=== PATIENT | male | born 1975 | race Caucasian/White ===

== ENCOUNTER 2018-06-12 16:54 | Inpatient (IN) | payer OTHER ==
[~2018-06-12] VITALS: Ht 177.8 cm; Wt 103.4 kg
[2018-06-12 17:01] VITALS: BP 181/114
[2018-06-12] MEDS ORDERED: METOPROLOL 5 MG/5 ML VIAL IVP ONE (17:15)
[2018-06-12 17:37] LABS: BASOPHILS % (AUTO) 0.4 % (0.0-2.0); EOSINOPHILS # (AUTO) 0.2 K/uL (0-0.4); EOSINOPHILS % (AUTO) 2.7 % (0.0-4.0); HEMATOCRIT 53.2 % (36-52); HEMOGLOBIN 18.2 g/dL (12.0-18.0); LYMPHOCYTES # (AUTO) 1.8 K/uL (2.0-11.5); LYMPHOCYTES % (AUTO) 24.7 % (20.5-51.1); MEAN CORPUSCULAR HEMOGLOBIN 30 pg (27-31); MEAN CORPUSCULAR HGB CONC 34 g/dL (33-37); MONOCYTES # (AUTO) 0.3 K/uL (0.8-1.0); MONOCYTES % (AUTO) 4.6 % (1.7-9.3); NEUTROPHILS % (AUTO) 67.6 % (42.2-75.2); PLATELET COUNT (AUTO) 144 K/uL (140-450); RED BLOOD CELL COUNT(AUTO) 5.98 MIL/uL (4.20-6.10); RED CELL DISTRIBUTION WIDTH 13.3 % (11.6-13.7); WHITE BLOOD COUNT (AUTO) 7.4 K/uL (4.8-10.8)
[2018-06-12 18:18] LABS: PROTHROMBIN TIME 9.6 secs (10.8-13.4)
[2018-06-12 18:20] LABS: ALBUMIN 3.1 g/dL (3.4-5.0); ANION GAP 15.1 (8-16); CARBON DIOXIDE 23.3 mmol/L (21-32); POTASSIUM 4.4 mmol/L (3.5-5.1); TOTAL BILIRUBIN 0.5 mg/dL (0.0-1.0)
[2018-06-12 18:34] LABS: CREATININE 4.1 mg/dL (0.7-1.3)
[2018-06-12] MEDS ORDERED: ONDANSETRON 4 MG/2 ML VIAL IVP ONE (20:35)
[2018-06-12] MEDS ORDERED: KETOROLAC 30 MG/ML VIAL IVP ONE (20:35)
[2018-06-12] MEDS ORDERED: hydrALAZINE 20 MG/ML VIAL IVP ONE (21:00)
[2018-06-12] MEDS ORDERED: LORazepam 2 MG/ML VIAL IVP PRN ×2 (21:35→21:40)
[2018-06-12] MEDS ORDERED: ONDANSETRON 4 MG/2 ML VIAL IVP PRN ×2 (21:35→21:40)
[2018-06-12] MEDS ORDERED: HYDROcodone/APAP 5/325 MG 1 TAB TAB PO PRN ×3 (21:35→21:40)
[2018-06-12] MEDS ORDERED: MORPHINE SULFATE 4 MG/ML SYR IVP PRN (21:35)
[2018-06-12] MEDS ORDERED: ACETAMINOPHEN 325 MG TAB PO PRN ×2 (21:35→21:40)
[2018-06-12] MEDS ORDERED: MORPHINE SULFATE 2 MG/ML SYR IVP PRN (21:40)
[2018-06-12] MEDS ORDERED: guaiFENesin DM 200/20 MG-10 ML 10 ML UDC PO PRN (21:40)
[2018-06-12] MEDS ORDERED: ACETAMINOPHEN 650 MG SUPP RC PRN (21:40)
[2018-06-12] MEDS ORDERED: DEXTROSE 50% 50 ML SYR IVP PRN (21:40)
[2018-06-12] MEDS ORDERED: ALBUTEROL 0.083% 2.5 MG/3 ML NEBU INH PRN (21:40)
[2018-06-12] MEDS ORDERED: ZOLPIDEM 5 MG TAB PO PRN (21:40)
[2018-06-12] MEDS ORDERED: ALUMINUM HYD/MAG/SIMETHICONE 30 ML UDC PO PRN (21:40)
[2018-06-12] MEDS ORDERED: cloNIDine 0.1 MG TAB PO PRN (21:40)
[2018-06-12] MEDS ORDERED: LABETALOL 100 MG/20 ML VIAL IVP PRN (21:40)
[2018-06-12] MEDS ORDERED: POTASSIUM CHLORIDE 10 MEQ TABER PO PRN (21:40)
[2018-06-12] MEDS ORDERED: POTASSIUM CHLORIDE 40 MEQ, LIDOCAINE 1% 25 MG in NACL 0.9% 250 ML IV PRN (21:40)
[2018-06-12] MEDS ORDERED: IPRATROPIUM 0.02% 0.5 MG/2.5 ML NEBU INH PRN (21:40)
[2018-06-12] MEDS ORDERED: DOCUSATE SODIUM 250 MG GELCAP PO PRN (21:40)
[2018-06-12] MEDS ORDERED: BISACODYL 10 MG SUPP RC PRN (21:40)
[2018-06-12] MEDS ORDERED: MAGNESIUM OXIDE 400 MG TAB PO PRN (21:40)
[2018-06-12] MEDS ORDERED: SODIUM PHOSPHATE 118 ML ENEM RC PRN (21:40)
[2018-06-12 22:00] VITALS: BP 168/102
[2018-06-12 22:25] VITALS: BP 150/91
[2018-06-12] MEDS: NACL 0.9% 1,000 ML IV SCH (22:54)
[2018-06-13] VITALS: BP 136/93
[2018-06-13 04:00] VITALS: BP 154/93
[2018-06-13] MEDS: BLOOD GLUCOSE MONITORING 1 DEV DEV FS SCH ×3 (05:47→17:12)
[2018-06-13] MEDS: NACL 0.9% 1,000 ML IV SCH (05:50)
[2018-06-13] MEDS: INSULIN LISPRO SLIDING SCALE 100 UNITS/ML VIAL SUBQ PRN ×3 (05:51→17:40)
[2018-06-13 06:07] LABS: BASOPHILS % (AUTO) 0.4 % (0.0-2.0); EOSINOPHILS # (AUTO) 0.3 K/uL (0-0.4); EOSINOPHILS % (AUTO) 4.5 % (0.0-4.0); HEMATOCRIT 49.3 % (36-52); HEMOGLOBIN 17.4 g/dL (12.0-18.0); LYMPHOCYTES # (AUTO) 2.6 K/uL (2.0-11.5); LYMPHOCYTES % (AUTO) 33.3 % (20.5-51.1); MEAN CORPUSCULAR HEMOGLOBIN 31 pg (27-31); MEAN CORPUSCULAR HGB CONC 35 g/dL (33-37); MEAN CORPUSCULAR VOLUME 88.6 fL (80-94); MONOCYTES # (AUTO) 0.5 K/uL (0.8-1.0); MONOCYTES % (AUTO) 6.3 % (1.7-9.3); NEUTROPHILS # (AUTO) 4.3 K/uL (1.8-7.7); NEUTROPHILS % (AUTO) 55.5 % (42.2-75.2); PLATELET COUNT (AUTO) 135 K/uL (140-450); RED BLOOD CELL COUNT(AUTO) 5.57 MIL/uL (4.20-6.10); RED CELL DISTRIBUTION WIDTH 13.1 % (11.6-13.7); WHITE BLOOD COUNT (AUTO) 7.7 K/uL (4.8-10.8)
[2018-06-13] MEDS ORDERED: PNEUMOCOCCAL VACCINE 23 MCG/0.5 ML VIAL IMVAC PRN (07:25)
[2018-06-13 08:00] VITALS: BP 172/100
[2018-06-13] MEDS ORDERED: ENOXAPARIN 30 MG/0.3 ML SYR SUBQ SCH (09:00)
[2018-06-13] MEDS ORDERED: NIFEdipine 30 MG TABER PO SCH (10:00)
[2018-06-13 12:00] VITALS: BP 149/95
[2018-06-13 16:02] VITALS: BP 138/92
[2018-06-13] MEDS ORDERED: INFLUENZA VIRUS VACCINE QUAD 0.5 ML SYR IMVAC SCH (16:45)
[2018-06-13] MEDS ORDERED: HUMSLIDE (17:04)
[2018-06-13] MEDS ORDERED: NIFE-144 PO ×2 (17:05→17:07)
[2018-06-13] MEDS ORDERED: HYDR100T79 PO (17:06)
[2018-06-13 17:24] LABS: ANION GAP 9.8 (8-16); CARBON DIOXIDE 24.7 mmol/L (21-32); CREATININE 3.9 mg/dL (0.7-1.3); POTASSIUM 4.5 mmol/L (3.5-5.1)
[2018-06-14] MEDS ORDERED: NIFEdipine 30 MG TABER PO SCH (09:00)
== END 2018-06-13 18:45 | disposition home or self-care (01) | DRG 199 ==
LOC: MED 16:54 → MTU 21:38
PROVIDERS: ADMIT Hospitalist; ATTEND Hospitalist
DX: I16.1 Hypertensive emergency (principal); E11.22 Type 2 diabetes mellitus with diabetic chronic kidney disease; N18.4 Chronic kidney disease, stage 4 (severe); N17.9 Acute kidney failure, unspecified; D75.1 Secondary polycythemia; E11.65 Type 2 diabetes mellitus with hyperglycemia; I16.0 Hypertensive urgency; I12.9 Hypertensive chronic kidney disease with stage 1 through stage 4 chronic kidney disease, or unspecified chronic kidney disease; N18.9 Chronic kidney disease, unspecified; Z79.84 Long term (current) use of oral hypoglycemic drugs
CPT/HCPCS: 36415; 71045; 76770; 80048; 80053; 82948; 83036; 83880; 84443; 84484; 85025; 85610; 85730; 87081; 90732; 93005; 96374; 96375; 99285; J0360; J1650; J1815; J1885; J2405; J3490; J7030; Q0092

== ENCOUNTER 2018-06-23 00:15 | Emergency (ER) | payer OTHER ==
[~2018-06-23] VITALS: Ht 177.8 cm; Wt 104.3 kg
[~2018-06-23 00:15] MED LIST: HUMSLIDE; HYDR100T79 PO; NIFE-144 PO
[2018-06-23 00:21] VITALS: BP 190/120
--- NOTE | 2018-06-23 00:21 | NUR ---
to bed # 5 ambulatory, report given to Melinda Lutz
--- NOTE | 2018-06-23 00:25 | NUR ---
43 Y/O M W/C/O VOMITING AND HEADACHE THAT STARTED TODAY IN THE AFTERNOON. PT DENIES ABD PAIN AND DIARRHEA. PT ACTIVELY VOMITING; SKIN IS INTACT, PINK/WARM/DRY; AAOX4, PERRL, WITH EVEN AND STEADY GAIT; LUNGS CLEAR BL, BREATHING UNLABORED; HR EVEN AND REGULAR, BL PERIPHERAL PULSES PRESENT; BS ACTIVE X4, NO TENDERNESS TO PALPATION, NO HEPATOSPLENOMEGALLY PALPATED, RESONANT TO PERCUSSION; PT DENIES ANY FEVER, CP, SOB, OR COUGH AT THIS TIME; PT STATES 8/10 PAIN AT THIS TIME; VSS; PATIENT POSITIONED FOR COMFORT; HOB ELEVATED; BEDRAILS UP X2; BED DOWN.
--- NOTE | 2018-06-23 01:15 | NUR ---
Dr. Wheeler evaluating patient at bedside.
[2018-06-23] MEDS ORDERED: NACL 0.9% 1,000 ML IV SCH (01:58)
[2018-06-23] MEDS ORDERED: diphenhydrAMINE 50 MG/ML VIAL IVP ONE (02:00)
[2018-06-23] MEDS ORDERED: METOCLOPRAMIDE 10 MG/2 ML INJ VIAL IVP ONE (02:00)
[2018-06-23] MEDS ORDERED: KETOROLAC 30 MG/ML VIAL IVP ONE (02:00)
[2018-06-23] MEDS ORDERED: MORPHINE SULFATE 2 MG/ML SYR IVP ONE (02:00)
[2018-06-23] MEDS ORDERED: ONDANSETRON 4 MG/2 ML VIAL IVP ONE (02:00)
--- NOTE | 2018-06-23 02:05 | NUR ---
PT LYING IN BED, PAIN IS 10/10. MD NOTIFIED
--- NOTE | 2018-06-23 02:48 | NUR ---
PT TAKEN TO CT
[2018-06-23 03:21] LABS: BASOPHILS % (AUTO) 0.1 % (0.0-2.0); EOSINOPHILS # (AUTO) 0.1 K/uL (0-0.4); EOSINOPHILS % (AUTO) 0.6 % (0.0-4.0); HEMATOCRIT 53.9 % (36-52); HEMOGLOBIN 18.6 g/dL (12.0-18.0); LYMPHOCYTES # (AUTO) 1.1 K/uL (2.0-11.5); MEAN CORPUSCULAR HEMOGLOBIN 31 pg (27-31); MEAN CORPUSCULAR HGB CONC 35 g/dL (33-37); MEAN CORPUSCULAR VOLUME 88.6 fL (80-94); MONOCYTES # (AUTO) 0.8 K/uL (0.8-1.0); MONOCYTES % (AUTO) 4.5 % (1.7-9.3); NEUTROPHILS # (AUTO) 15.4 K/uL (1.8-7.7); NEUTROPHILS % (AUTO) 88.3 % (42.2-75.2); PLATELET COUNT (AUTO) 145 K/uL (140-450); RED BLOOD CELL COUNT(AUTO) 6.09 MIL/uL (4.20-6.10); RED CELL DISTRIBUTION WIDTH 13.3 % (11.6-13.7)
[2018-06-23 03:25] LABS: BARBITURATE, URINE NEG. ng/ml (NEG <=200); BENZODIAZEPINE, URINE NEG. ng/mL (NEG <=200); CANNABINOID, URINE NEG. ng/mL (NEG <=50); COCAINE, URINE NEG. ng/mL (NEG <=300); OPIATE, URINE POS. ng/mL (NEG <=2000); PHENCYCLIDINE SCREEN,URINE NEG. ng/mL (NEG <=25)
[2018-06-23 03:31] LABS: ALBUMIN 3.2 g/dL (3.4-5.0); ANION GAP 5.6 (8-16); CARBON DIOXIDE 26.7 mmol/L (21-32); POTASSIUM 4.3 mmol/L (3.5-5.1); TOTAL BILIRUBIN 0.5 mg/dL (0.0-1.0)
[2018-06-23 03:33] LABS: APPEARANCE,URINE CLEAR (CLEAR); BILIRUBIN,URINE NEGATIVE (NEGATIVE); BLOOD, URINE 2+ (NEGATIVE); COLOR,URINE YELLOW (YELLOW); LEUKOCYTE ESTERASE ,URINE NEGATIVE (NEGATIVE); NITRITE, URINE NEGATIVE (NEGATIVE); UGLUCOSE 2+ (NEGATIVE)
[2018-06-23 03:45] LABS: WHITE BLOOD COUNT (AUTO) 17.5 K/uL (4.8-10.8)
[2018-06-23 03:46] LABS: LYMPHOCYTES % (AUTO) 6.5 % (20.5-51.1)
[2018-06-23 04:06] LABS: HYALINE CASTS, URINE 0-10 /LPF (None Seen); RBC,URINE 3-10 (FEW) /HPF (0-5); WBC,URINE 0-5 (RARE) /HPF (0-5)
--- NOTE | 2018-06-23 05:05 | NUR ---
Patient discharged with v/s stable. Written and verbal after care instructions given and explained. Patient alert, oriented and verbalized understanding of instructions. Ambulatory with steady gait. All questions addressed prior to discharge. ID band removed. Patient advised to follow up with PMD. Rx of REGLAN, MOTRIN, MECLIZINE, AND AUGMENTIN given. Patient educated on indication of medication including possible reaction and side effects. Opportunity to ask questions provided and answered.
[2018-06-23 05:10] VITALS: BP 158/91
== END 2018-06-23 05:05 | disposition home or self-care (01) ==
LOC: MED 00:15
DX: R11.10 Vomiting, unspecified (principal); R51 Headache; E11.9 Type 2 diabetes mellitus without complications; I10 Essential (primary) hypertension; Z79.899 Other long term (current) drug therapy
CPT/HCPCS: 36415; 70450; 80053; 80305; 81001; 83690; 85025; 96361; 96374; 96375; 99285; J1200; J1885; J2270; J2405; J2765; J7030

== ENCOUNTER 2018-12-14 14:34 | Emergency (ER) | payer OTHER ==
[~2018-12-14] VITALS: Ht 180.3 cm; Wt 102.5 kg
[2018-12-14 14:39] VITALS: BP 159/103
--- NOTE | 2018-12-14 14:45 | NUR ---
PT AMBULATED TO ED BED 05
--- NOTE | 2018-12-14 14:54 | NUR ---
PT C/O COUGH WITH FEVER X 2 DAYS. ALSO STATED HAVING DIARRHEA TODAY. TOOK TYLENOL 6 HRS AGO. NO OTHER COMPLAINTS. VSS; PATIENT POSITIONED FOR COMFORT; HOB ELEVATED; BEDRAILS UP X1; BED DOWN. ER MD MADE AWARE OF PT STATUS.
[2018-12-14] MEDS ORDERED: KETOROLAC 30 MG/ML VIAL IM ONE (15:00)
[2018-12-14] MEDS ORDERED: ACETAMIN/CODEINE 120/12MG-5ML 5 ML UDC PO ONE (15:00)
--- NOTE | 2018-12-14 15:03 | NUR ---
rad at bed side
[2018-12-14] MEDS ORDERED: ACETAMINOPHEN EXTRA STRENGTH 500 MG TAB PO ONE (15:50)
[2018-12-14 16:33] VITALS: BP 145/99
--- NOTE | 2018-12-14 16:34 | NUR ---
Patient discharged with v/s stable. Written and verbal after care instructions given and explained. Patient alert, oriented and verbalized understanding of instructions. Ambulatory with steady gait. All questions addressed prior to discharge. ID band removed. Patient advised to follow up with PMD. Rx of AZITHROMYCIN, NAPROSYN, TAMIFLU, GUAIATUSSIN given. Patient educated on indication of medication including possible reaction and side effects. Opportunity to ask questions provided and answered.
== END 2018-12-14 16:34 | disposition home or self-care (01) ==
LOC: MED 14:34
DX: B34.9 Viral infection, unspecified (principal); J40 Bronchitis, not specified as acute or chronic; E11.9 Type 2 diabetes mellitus without complications; I10 Essential (primary) hypertension; Z90.49 Acquired absence of other specified parts of digestive tract; Z79.4 Long term (current) use of insulin; Z79.899 Other long term (current) drug therapy
CPT/HCPCS: 71045; 87804; 96372; 99284; J1885; Q0092

== ENCOUNTER 2019-01-21 14:30 | Inpatient (IN) | payer OTHER ==
[~2019-01-21] VITALS: Ht 177.8 cm; Wt 104.3 kg
[2019-01-21 14:44] VITALS: BP 169/96
--- NOTE | 2019-01-21 15:00 | NUR ---
PT AMBULATED TO ED BED 10
--- NOTE | 2019-01-21 15:33 | NUR ---
PT PRESENTS TO ED WITH C/O GENERALIZED PAIN AND WEAKNESS X3 DAYS. ALSO STATED N/V/D. AAO X4, GCS 15, ABLE TO SPEKA WITH FULL COMPLETE SENTENCES. AMBULATORY WITH STEADY GAIT. RESPIRATIONS EVEN AND UNALBORED, BL LUNG CLEAR. SKIN WAMR/PINK/DRY, +PMSC. ABDOMEN SOFT, NON DISTENDED, ACTIVE BOWEL SOUND X4. VSS, STATED GENERALIZED BODY PAIN 10/10. MADE AWARE OF PT STATUS
--- NOTE | 2019-01-21 15:50 | NUR ---
Dr. Klein evaluating patient at bedside.
[2019-01-21] MEDS ORDERED: NACL 0.9% 1,000 ML IV ONE (15:52)
[2019-01-21] MEDS ORDERED: NACL 0.9% 1,000 ML IV SCH (15:52)
[2019-01-21 16:14] LABS: BASOPHILS % (AUTO) 0.5 % (0.0-2.0); EOSINOPHILS # (AUTO) 0.3 K/uL (0-0.4); EOSINOPHILS % (AUTO) 3.7 % (0.0-4.0); HEMATOCRIT 34.5 % (36-52); HEMOGLOBIN 12.2 g/dL (12.0-18.0); LYMPHOCYTES # (AUTO) 1.8 K/uL (2.0-11.5); LYMPHOCYTES % (AUTO) 25.6 % (20.5-51.1); MEAN CORPUSCULAR HEMOGLOBIN 31 pg (27-31); MEAN CORPUSCULAR HGB CONC 35 g/dL (33-37); MEAN CORPUSCULAR VOLUME 87.4 fL (80-94); MONOCYTES # (AUTO) 0.4 K/uL (0.8-1.0); MONOCYTES % (AUTO) 6.1 % (1.7-9.3); NEUTROPHILS # (AUTO) 4.6 K/uL (1.8-7.7); NEUTROPHILS % (AUTO) 64.1 % (42.2-75.2); PLATELET COUNT (AUTO) 142 K/uL (140-450); RED BLOOD CELL COUNT(AUTO) 3.95 MIL/uL (4.20-6.10); RED CELL DISTRIBUTION WIDTH 13.5 % (11.6-13.7); WHITE BLOOD COUNT (AUTO) 7.2 K/uL (4.8-10.8)
[2019-01-21 16:38] LABS: ALBUMIN 2.9 g/dL (3.4-5.0); AMYLASE 116 U/L (25-115); ANION GAP 16.3 (8-16); ASPARTATE AMINOTRANSFERASE 16 U/L (15-37); CARBON DIOXIDE 21.3 mmol/L (21-32); CHLORIDE 105 mmol/L (98-107); FREE T4 (FREE THYROXINE) 0.82 ng/dL (0.76-1.46); GFR ARICAN-AMERICAN 11 mL/min (>90); GLUCOSE 159 mg/dL (74-106); LIPASE 535 U/L (73-393); MAGNESIUM 1.2 mg/dL (1.8-2.4); POTASSIUM 3.6 mmol/L (3.5-5.1); SODIUM SERUM 139 mmol/L (136-145); THYROID STIMULATING HORMONE 3.21 uIU/mL (0.34-3.74); TOTAL BILIRUBIN 0.4 mg/dL (0.0-1.0)
[2019-01-21 17:03] LABS: CREATININE 6.9 mg/dL (0.7-1.3); UREA NITROGEN, BLOOD 72 mg/dL (7-18)
[2019-01-21 17:09] LABS: APPEARANCE,URINE CLEAR (CLEAR); BILIRUBIN,URINE NEGATIVE (NEGATIVE); BLOOD, URINE 2+ (NEGATIVE); LEUKOCYTE ESTERASE ,URINE NEGATIVE (NEGATIVE); NITRITE, URINE NEGATIVE (NEGATIVE); UGLUCOSE 2+ (NEGATIVE)
--- NOTE | 2019-01-21 17:13 | NUR ---
PT REMAINS GCS 15, RESPIRATIONS EVEN AND UNALBORED. CARDAIC MONITOR SR, BP ELEVATED. MADE AWARE. WILL CONTINUE TO MONITOR
[2019-01-21 17:15] LABS: COLOR,URINE STRAW (YELLOW)
[2019-01-21 17:20] LABS: RBC,URINE 0-5 /HPF (0-5)
[2019-01-21 17:21] LABS: WBC,URINE NONE SEEN /HPF (0-5)
[2019-01-21 17:23] LABS: ACETONE, SERUM NEGATIVE (NEGATIVE)
[2019-01-21 17:42] LABS: URIC ACID 8.4 mg/dL (2.6-7.2)
[2019-01-21] MEDS ORDERED: ENALAPRILAT 2.5 MG/2 ML VIAL IVP ONE (17:50)
[2019-01-21] MEDS ORDERED: cloNIDine 0.1 MG TAB PO ONE (17:50)
[2019-01-21] MEDS ORDERED: ALBUTEROL 0.083% 2.5 MG/3 ML NEBU INH PRN (18:40)
[2019-01-21] MEDS ORDERED: ONDANSETRON 4 MG/2 ML VIAL IVP PRN (18:40)
[2019-01-21] MEDS ORDERED: DEXTROSE 50% 50 ML SYR IVP PRN (18:40)
[2019-01-21] MEDS ORDERED: LORazepam 2 MG/ML VIAL IVP PRN (18:40)
[2019-01-21] MEDS ORDERED: ACETAMINOPHEN 325 MG TAB PO PRN (18:40)
[2019-01-21] MEDS ORDERED: MORPHINE SULFATE 4 MG/ML SYR IVP PRN (18:40)
[2019-01-21] MEDS ORDERED: hydrALAZINE 20 MG/ML VIAL IVP PRN (18:45)
[2019-01-21 19:10] VITALS: BP 130/87
--- NOTE | 2019-01-21 19:10 | NUR ---
Patient will be admitted to care of . Admited to [facility]. Will go to room 125B. Belongings list completed. Report to SU LARIOS.
--- NOTE | 2019-01-21 19:10 | NUR ---
REPORT RECEIVED FROM ED NURSE AT BEDSIDE. PT IN STABLE CONDITION. AAOX4. INTRODUCED SELF TO PT. BOARD UPDATED. PT HAS COMPLAINTS OF 6/10 ABDOMINAL PAIN. WILL MEDICATE. NO SOB. AFEBRILE. IV SITE L FA 18G RUNNING NS@100ML/HR PATENT AND INTACT. SKIN WARM, DRY, AND INTACT WITH NO OPEN WOUNDS. BED LOCKED IN LOW POSITION. CALL CASTILLO WITHIN REACH. SAFETY PRECAUTIONS IN PLACE. ALL NEEDS MET AT THIS TIME.
[2019-01-21 20:00] VITALS: BP 131/84
[2019-01-21] MEDS: MORPHINE SULFATE 2 MG/ML SYR IVP PRN (20:09)
--- NOTE | 2019-01-21 20:09 | NUR ---
BS 145. NO INSULIN COVERAGE NEEDED. MORPHINE GIVEN FOR 6/10 ABDOMINAL PAIN. PT TOLERATED WELL.
--- NOTE | 2019-01-21 20:10 | NUR ---
RADIOLOGY CALLED TO INFORM ME IT IS BETTER TO DO A US ABD COMPLETE INSTEAD OF US KIDNEY AND GALLBLADDER. CALLED. AWAITING CALL BACK. Addendum: 01/21/19 at 2128 by Rickie Dykes RN INTERVENTION DONE AT 1954.
[2019-01-21] MEDS: BLOOD GLUCOSE MONITORING 1 DEV DEV FS SCH (20:13)
--- NOTE | 2019-01-21 20:15 | NUR ---
CALLED BACK. ASKED MD TO CHANGE US KIDNEY AND GALLBLADDER TO US ABD COMPLETE. AGREED. NEW ORDER TORJudah. Addendum: 01/21/19 at 2129 by Rickie Dykes RN ORDER PUT IN AT 1999.
--- NOTE | 2019-01-21 22:20 | NUR ---
PT FAMILY IN LATE TO VISIT. PT IN STABLE CONDITION. WILL CONTINUE TO MONITOR.
[2019-01-22] VITALS: BP 132/89
--- NOTE | 2019-01-22 | NUR ---
PT SLEEPING BUT AROUSABLE. NO S/S OF DISTRESS NOTED. VS STABLE. PT AWAKE WITH COMPLAINTS OF PAIN BUT DID NOT WANT PAIN MEDICATION. WILL CONTINUE TO MONITOR.
[2019-01-22] MEDS: NACL 0.9% 1,000 ML IV SCH ×4 (00:15→21:25)
--- NOTE | 2019-01-22 02:15 | NUR ---
PT SLEEPING COMFORTABLY IN BED. NO S/S OF DISTRESS NOTED. NO COMPLAINTS OF PAIN. NO SOB. AFEBRILE. WILL CONTINUE TO MONITOR.
[2019-01-22 04:00] VITALS: BP 144/96
--- NOTE | 2019-01-22 04:10 | NUR ---
PT SLEEPING COMFORTABLY IN BED. NO S/S OF DISTRESS NOTED. RESPIRATIONS EVEN, UNLABORED, AND WNL. WILL CONTINUE TO MONITOR.
[2019-01-22] MEDS: BLOOD GLUCOSE MONITORING 1 DEV DEV FS SCH ×4 (06:19→21:05)
--- NOTE | 2019-01-22 06:19 | NUR ---
BS 111. NO INSULIN COVERAGE NEEDED.
[2019-01-22 06:56] LABS: BASOPHILS % (AUTO) 0.5 % (0.0-2.0); EOSINOPHILS # (AUTO) 0.3 K/uL (0-0.4); EOSINOPHILS % (AUTO) 3.9 % (0.0-4.0); HEMATOCRIT 34.4 % (36-52); LYMPHOCYTES # (AUTO) 1.9 K/uL (2.0-11.5); LYMPHOCYTES % (AUTO) 27.3 % (20.5-51.1); MEAN CORPUSCULAR HEMOGLOBIN 31 pg (27-31); MEAN CORPUSCULAR HGB CONC 35 g/dL (33-37); MEAN CORPUSCULAR VOLUME 88.1 fL (80-94); MONOCYTES # (AUTO) 0.5 K/uL (0.8-1.0); MONOCYTES % (AUTO) 6.6 % (1.7-9.3); NEUTROPHILS # (AUTO) 4.2 K/uL (1.8-7.7); NEUTROPHILS % (AUTO) 61.7 % (42.2-75.2); PLATELET COUNT (AUTO) 142 K/uL (140-450); RED BLOOD CELL COUNT(AUTO) 3.91 MIL/uL (4.20-6.10); RED CELL DISTRIBUTION WIDTH 13.7 % (11.6-13.7); WHITE BLOOD COUNT (AUTO) 6.8 K/uL (4.8-10.8)
--- NOTE | 2019-01-22 07:23 | NUR ---
REPORT GIVEN TO AM NURSE AT BEDSIDE. PT IN STABLE CONDITION.
--- NOTE | 2019-01-22 07:24 | NUR ---
RECEIVED BED SIDE REPORT FROM AIRPLANE FLIGHT ATTENDANT SUPERVISOR RN, PT IN STABLE CONDITION, ON RA IN NO RESPIRATORY DISTRESS RESTING COMFORTABLY IN BED, REPORTS NO PAIN, IV L FOREARM 18G RUNNING NS 100ML/HR, ON CLEAR LIQUID DIET, CALL LIGHT WITHIN REACH, WILL CONTINUE TO MONITOR
[2019-01-22 07:48] LABS: ALBUMIN 2.6 g/dL (3.4-5.0); ANION GAP 16.2 (8-16); CARBON DIOXIDE 21.1 mmol/L (21-32); MAGNESIUM 1.4 mg/dL (1.8-2.4); PHOSPHORUS 6.5 mg/dL (2.5-4.9); POTASSIUM 4.3 mmol/L (3.5-5.1); TOTAL BILIRUBIN 0.5 mg/dL (0.0-1.0)
[2019-01-22 07:54] LABS: CREATININE 6.9 mg/dL (0.7-1.3)
[2019-01-22 08:00] VITALS: BP 150/95
[2019-01-22] MEDS: NIFEdipine 30 MG TABER PO SCH (08:16)
[2019-01-22 12:00] VITALS: BP 146/96
--- NOTE | 2019-01-22 13:28 | NUR ---
RECEIVED BED SIDE REPORT FROM TERMINAL SUPERVISORRIC BOUDREAUX. PT IN STABLE CONDITION IN A WHEELCHAIR, NO OXYGEN, IN NO RESPIRATORY DISTRESS, IV L AC 20G, CONFUSED, DID NOT KNOW NAME, KNEW WE WERE IN THE [facility], DID NOT KNOW YEAR AND DID NOT KNOW WHY PT WAS ADMITTED. NO SEVERINO IN PLACE, 2 OPEN AND DRY WOUND IN THE BACK OF PT'S NECK, ON CCHO 60G DIET, PT AMBULATORY WITH NO DISTRESS, PT ATE 80% OF LUNCH, ORIENTED PT TO UNIT AND STAFF, CALL LIGHT WITHIN REACH, WILL CONTINUE TO MONITOR Addendum: 01/22/19 at 1729 by Bess Aguirre RN PLEASE DISREGARD THIS NOTE. WRONG PT
--- NOTE | 2019-01-22 13:30 | NUR ---
TOOK PT'S VS AND BP WAS 172/93, NOTIFIED AND SAID TO RETAKE IN 1 HOUR, WILL RETAKE BP AT 1430 Addendum: 01/22/19 at 1727 by Bess Aguirre RN PLEASE DISREGARD THIS NOTE. WRONG PT Addendum: 01/22/19 at 1729 by Bess Aguirre RN PLEASE DISREGARD THIS NOTE, WRONG PT
[2019-01-22] MEDS ORDERED: POTASSIUM CHLORIDE 10 MEQ TABER PO PRN (14:10)
[2019-01-22] MEDS ORDERED: POTASSIUM CHLORIDE 40 MEQ, LIDOCAINE 1% 25 MG in NACL 0.9% 250 ML IV PRN (14:10)
[2019-01-22] MEDS ORDERED: MAG SULF 2000 MG/WATER PREMIX 50 ML IV PRN (14:10)
[2019-01-22] MEDS ORDERED: MAGNESIUM OXIDE 400 MG TAB PO PRN (14:10)
--- NOTE | 2019-01-22 14:27 | NUR ---
01/22/19 RD INITIAL ASSESSMENT COMPLETED PLEASE REFER TO NUTRITION ASSESSMENT UNDER CARE ACTIVITY FOR ESTIMATED NUTRITIONAL NEEDS. 1. CONTINUE CLEAR LIQUID DIET TOLERATED 2. WHEN PATIENT IS MEDICALLY STABLE CONSIDER ADVANCING DIET TO CCHO [address] PROVIDED REHYDRATION NUTRITION EDUCATION HANDOUT. PT ACCEPTED 4. RD TO FOLLOW-UP 3-5 DAYS, MODERATE RISK ALFREDITO NAVA RD
--- NOTE | 2019-01-22 14:30 | NUR ---
DR. DORAN AT BEDSIDE TO SEE PT. VERBAL ORDER GIVEN FOR NS BOLUS 1000ML THEN INCREASE NS IV FLUID TO 150ML/HR. ORDERS NOTED AND CARRIED OUT, PT AWARE AND AGREED WITH POC.
--- NOTE | 2019-01-22 14:35 | NUR ---
1L NS bolus initiated. Pt resting in bed, no c/o discomfort. Left AC IV intact & asymptomatic. Call light within reach.
[2019-01-22] MEDS ORDERED: NACL 0.9% 1,000 ML IV SCH (14:45)
--- NOTE | 2019-01-22 15:30 | NUR ---
1L NS bolus completed. Initiated NS IVF @ 150ml/hr. Pt resting in bed, no SOB, no c/o pain, no SOB. Call light within reach.
--- NOTE | 2019-01-22 15:57 | NUR ---
CALLED PATIENT'S PRIMARY DR JORGE LUIS ZAIDI, [address] [facility], [phone] AND MADE F/U APPOINTMENT WITH DR KAYLIN TUCKER COVERING FOR DR KANG FOR SaturdayJANUARY 30 AT 3:30 PM , NOTIFIED PATIENT AND APPOINTMENT REMINDER GIVEN
[2019-01-22 16:00] VITALS: BP 133/88
--- NOTE | 2019-01-22 17:29 | NUR ---
PT RESTING COMFORTABLY AT BEDSIDE, PT DENIES PAIN, ON RA IN NO RESPIRATORY DISTRESS, CALL LIGHT WITHIN REACH, WILL CONTINUE TO MONITOR
--- NOTE | 2019-01-22 19:25 | NUR ---
RECEIVED BEDSIDE REPORT FROM DAY SHIFT NURSE. PATIENT AWAKE, ALERT, AND COOPERATIVE. RESPIRATION EVEN UNLABORED ON ROOM AIR. SKIN IS WARM AND DRY. IV PATENT AND INTACT. FAMILY AT BEDSIDE. PATIENT IS AMBULATORY. PLAN OF CARE WAS DISCUSSED. ALL SAFETY MEASURES IN PLACE. BED IS AT LOW POSITION. CALL LIGHT WITHIN REACH AND VERBALIZES ITS USE. WILL CONTINUE TO MONITOR.
--- NOTE | 2019-01-22 19:35 | NUR ---
GAVE BEDSIDE REPORT TO ONCOLOGY PHYSICIAN RN, PT IN STABLE CONDITION
[2019-01-22 20:00] VITALS: BP 131/90
--- NOTE | 2019-01-22 20:00 | NUR ---
INITIAL ASSESSMENT DONE. VITALS WERE TAKEN. DENIES PAIN. PATIENT CONDITION STABLE. WILL CONTINUE TO MONITOR
--- NOTE | 2019-01-22 21:00 | NUR ---
PATIENT BLOOD GLUCOSE 192. GAVE 2 UNITS OF INSULIN. WILL CONTINUE TO MONITOR.
[2019-01-22] MEDS: INSULIN LISPRO SLIDING SCALE 100 UNITS/ML VIAL SUBQ PRN (21:13)
--- NOTE | 2019-01-22 23:00 | NUR ---
PATIENT IN BED WATCHING TV RESPIRATION EVEN UNLABORED ON ROOM AIR. NO DISTRESS NOTED. WILL CONTINUE TO MONITOR.
[2019-01-23] VITALS (8 sets, daily range): BP systolic 128–152; BP diastolic 72–96
--- NOTE | 2019-01-23 | NUR ---
VITALS WERE TAKEN. PATIENT CONDITION STABLE. DENIES PAIN. WILL CONTINUE TO MONITOR
--- NOTE | 2019-01-23 02:00 | NUR ---
PATIENT SLEEPING RESPIRATION EVEN UNLABORED ON ROOM AIR. NO DISTRESS NOTED. WILL CONTINUE TO MONITOR
--- NOTE | 2019-01-23 04:00 | NUR ---
VITALS WERE TAKEN. PATIENT CONDITION STABLE. NO DISTRESS NOTED. WILL CONTINUE TO MONITOR
[2019-01-23] MEDS: NACL 0.9% 1,000 ML IV SCH ×2 (04:16→11:26)
[2019-01-23] MEDS: BLOOD GLUCOSE MONITORING 1 DEV DEV FS SCH ×4 (06:20→20:56)
[2019-01-23 06:45] LABS: BASOPHILS % (AUTO) 0.5 % (0.0-2.0); EOSINOPHILS # (AUTO) 0.3 K/uL (0-0.4); EOSINOPHILS % (AUTO) 3.4 % (0.0-4.0); HEMATOCRIT 37.4 % (36-52); LYMPHOCYTES # (AUTO) 1.8 K/uL (2.0-11.5); LYMPHOCYTES % (AUTO) 22.2 % (20.5-51.1); MEAN CORPUSCULAR HEMOGLOBIN 31 pg (27-31); MEAN CORPUSCULAR HGB CONC 35 g/dL (33-37); MEAN CORPUSCULAR VOLUME 87.8 fL (80-94); MONOCYTES # (AUTO) 0.4 K/uL (0.8-1.0); MONOCYTES % (AUTO) 5.4 % (1.7-9.3); NEUTROPHILS # (AUTO) 5.5 K/uL (1.8-7.7); NEUTROPHILS % (AUTO) 68.5 % (42.2-75.2); PLATELET COUNT (AUTO) 147 K/uL (140-450); RED BLOOD CELL COUNT(AUTO) 4.26 MIL/uL (4.20-6.10); RED CELL DISTRIBUTION WIDTH 13.4 % (11.6-13.7)
[2019-01-23 07:01] LABS: ANION GAP 17.8 (8-16); CARBON DIOXIDE 19.2 mmol/L (21-32)
[2019-01-23 07:12] LABS: CREATININE 6.4 mg/dL (0.7-1.3)
--- NOTE | 2019-01-23 07:25 | NUR ---
ENDORSED PATIENT TO DAY SHIFT NURSE FOR CONTINUITY OF CARE. PATIENT CONDITION STABLE.
--- NOTE | 2019-01-23 07:26 | NUR ---
RECEIVED BED SIDE REPORT FROM INSIDE SOLAR SALES CONSULTANT RN, PT A/O X4 WITH L HAND 18G RUNNING NS AT 100ML/HR, FLUSHES WELL, PT STATED HE HAS LOOSE STOOL THIS MORNING, SKIN INTACT, DENIES PAIN, ON RA IN NO RESPIRATORY DISTRESS, WILL CONTINUE TO MONITOR
[2019-01-23] MEDS: NIFEdipine 30 MG TABER PO SCH (08:51)
[2019-01-23 09:11] LABS: HEPATITIS B SURFACE ANTIBODY Non Reactive (.); HEPATITIS B SURFACE ANTIGEN Negative (Negative)
--- NOTE | 2019-01-23 09:15 | NUR ---
Pt ambulating in hallway with steady gait, maneuvers IV pole with good safety awareness. No signs of distress.
--- NOTE | 2019-01-23 11:58 | NUR ---
NOTIFIED DR. RUIZ ABOUT PT'S BP RUNNING IN THE HIGH 140'S, LOW 150'S. PT RECEIVING ADALAT 30MG. DR. DORAN SAID TO CONTINUE TO MONITOR BP AND WILL ADJUST BP MEDS. DID VERBAL ORDER TO CHANGE DIET TO RENAL DIET. PT WILL CONTINUE TO STAY FOR A COUPLE OF DAYS TO MONITOR RENAL LABS
--- NOTE | 2019-01-23 15:40 | NUR ---
Dr. Chadwick at bedside to assess pt.
[2019-01-23] MEDS: SODIUM BICARBONATE 8.4% 50 MEQ in NACL 0.45% 1,000 ML IV SCH (15:45)
--- NOTE | 2019-01-23 15:50 | NUR ---
ORTHOSTATIC BLOOD PRESSURE monitoring completed: Supine: 150/88, P74 Sittin/96, P75 Standin/89, P82 Pt denies any dizziness or discomfort during position changes.
--- NOTE | 2019-01-23 16:00 | NUR ---
Pt ambulating in hallway with steady gait. Able to maneuver IV pole with good safety awareness. Pt denies any discomfort.
--- NOTE | 2019-01-23 19:10 | NUR ---
GAVE BEDSIDE REPORT TO METAL MOVER RN, PT IN STABLE CONDITION
--- NOTE | 2019-01-23 19:11 | NUR ---
RECEIVED REPORT FROM DAY SHIFT NURSE MARLON-RN AT BEDSIDE. PT RESTING IN BED, AOX4- ARGENTINE SPEAKING, ON ROOM AIR WITH LEFT FA #18G. DISCUSSED PLAN OF CARE AND PT VERBALIZED UNDERSTANDING. NO S/S OF RESPIRATORY DISTRESS OR DISCOMFORT NOTED AT THIS TIME. PT IS AMBULATORY. BED IN LOWEST POSITION, BED BREAKS ON, BOTH SIDE RAILS UP. BEDSIDE TABLE AND CALL LIGHT ARE WITHIN REACH. WILL CONTINUE TO MONITOR.
--- NOTE | 2019-01-23 20:00 | NUR ---
VITAL SIGNS TAKEN AND TOLERATED WELL. BLOOD GLUCOSE 164- WILL ADMINISTER INSULIN COVERAGE. NO S/S OF RESPIRATORY DISTRESS OR DISCOMFORT NOTED AT THIS TIME. WILL CONTINUE TO MONITOR.
[2019-01-23] MEDS: INSULIN LISPRO SLIDING SCALE 100 UNITS/ML VIAL SUBQ PRN (20:59)
--- NOTE | 2019-01-23 20:59 | NUR ---
INSULIN COVERAGE GIVEN AND TOLERATED WELL. NO S/S OF RESPIRATORY DISTRESS OR DISCOMFORT NOTED AT THIS TIME. WILL CONTINUE TO MONITOR.
--- NOTE | 2019-01-23 22:00 | NUR ---
PT SLEEPING AT THIS TIME. NO S/S OF RESPIRATORY DISTRESS OR DISCOMFORT NOTED AT THIS TIME. WILL CONTINUE TO MONITOR.
[2019-01-23 23:02] LABS: TOTAL PROTEIN URINE 179.4 MG/DL
[2019-01-24] VITALS (7 sets, daily range): BP systolic 147–163; BP diastolic 89–104
--- NOTE | 2019-01-24 | NUR ---
VITAL SIGNS TAKEN AND TOLERATED WELL. NO S/S OF RESPIRATORY DISTRESS OR DISCOMFORT NOTED AT THIS TIME. WILL CONTINUE TO MONITOR.
--- NOTE | 2019-01-24 02:00 | NUR ---
PT CONTINUES TO SLEEP IN BED. NO S/S OF RESPIRATORY DISTRESS OR DISCOMFORT NOTED AT THIS TIME. WILL CONTINUE TO MONITOR.
[2019-01-24] MEDS: SODIUM BICARBONATE 8.4% 50 MEQ in NACL 0.45% 1,000 ML IV SCH ×3 (03:52→17:00)
--- NOTE | 2019-01-24 04:00 | NUR ---
VITAL SIGNS TAKEN AND TOLERATED WELL. NO S/S OF RESPIRATORY DISTRESS OR DISCOMFORT NOTED AT THIS TIME. WILL CONTINUE TO MONITOR.
--- NOTE | 2019-01-24 06:00 | NUR ---
BLOOD GLUCOSE 91- NO INSULIN COVERAGE NEEDED. NO S/S OF RESPIRATORY DISTRESS OR DISCOMFORT NOTED AT THIS TIME. WILL CONTINUE TO MONITOR.
[2019-01-24] MEDS: BLOOD GLUCOSE MONITORING 1 DEV DEV FS SCH ×4 (06:52→20:01)
--- NOTE | 2019-01-24 07:09 | NUR ---
ENDORSED PT CARE TO DAY SHIFT NURSE PEPITO GENTILE FOR CONTINUITY OF CARE.
--- NOTE | 2019-01-24 07:10 | NUR ---
RECEIVED BEDSIDE REPORT FROM RIC KENNEDY. PT STABLE, AWAKE, ALERT AND ORIENTED X4. NO SIGNS OF DISTRESS NOTED. DENIES PAIN OR SOB. NO REDNESS, SWELLING, OR INFLAMMATION NOTED ON IV SITE. CALL CASTILLO WITHIN REACH. BED IN LOWEST POSITION. SAFETY MEASURES IN PLACE. PLAN OF CARE REVIEWED.
[2019-01-24] MEDS: NIFEdipine 30 MG TABER PO SCH (09:34)
--- NOTE | 2019-01-24 09:34 | NUR ---
ADMINISTERED SCHEDULED MEDICATION, PT TOLERATED WELL. BP RECHECKED, 149/90.
[2019-01-24 09:45] LABS: BASOPHILS % (AUTO) 0.4 % (0.0-2.0); EOSINOPHILS # (AUTO) 0.3 K/uL (0-0.4); EOSINOPHILS % (AUTO) 3.9 % (0.0-4.0); HEMATOCRIT 38.4 % (36-52); HEMOGLOBIN 13.6 g/dL (12.0-18.0); LYMPHOCYTES % (AUTO) 26.8 % (20.5-51.1); MEAN CORPUSCULAR HEMOGLOBIN 31 pg (27-31); MEAN CORPUSCULAR HGB CONC 35 g/dL (33-37); MEAN CORPUSCULAR VOLUME 87.2 fL (80-94); MONOCYTES # (AUTO) 0.4 K/uL (0.8-1.0); MONOCYTES % (AUTO) 5.3 % (1.7-9.3); NEUTROPHILS # (AUTO) 4.9 K/uL (1.8-7.7); NEUTROPHILS % (AUTO) 63.6 % (42.2-75.2); PLATELET COUNT (AUTO) 155 K/uL (140-450); RED CELL DISTRIBUTION WIDTH 13.8 % (11.6-13.7); WHITE BLOOD COUNT (AUTO) 7.6 K/uL (4.8-10.8)
[2019-01-24 09:57] LABS: ANION GAP 15.2 (8-16); CARBON DIOXIDE 23.4 mmol/L (21-32); POTASSIUM 3.6 mmol/L (3.5-5.1)
[2019-01-24 10:06] LABS: CREATININE 6.2 mg/dL (0.7-1.3)
[2019-01-24] MEDS ORDERED: MAG SULF 2000 MG/WATER PREMIX 50 ML IV PRN (10:55)
--- NOTE | 2019-01-24 11:30 | NUR ---
ADMINISTERED PRN MAG-RIDER FOR MAGNESIUM 1.3 PER MD ORDER. PT TOLERATED WELL. BLOOD SUGAR CHECKED, 100. NO COVERAGE NEEDED.
--- NOTE | 2019-01-24 12:10 | NUR ---
PT AMBULATING THROUGH THE HALLWAY WITH STEADY GAIT.
--- NOTE | 2019-01-24 13:12 | NUR ---
PT STABLE, SLEEPING, BUT EASILY AROUSABLE. CHEST RISE AND FALL VISIBLY NOTED.
--- NOTE | 2019-01-24 13:50 | NUR ---
24 HOUR URINE COLLECTION STARTED PER MD ORDER. INSTRUCTED PT TO CALL FOR HELP AFTER USING THE URINAL TO COLLECT URINE. PT VERBALIZED UNDERSTANDING.
--- NOTE | 2019-01-24 14:05 | NUR ---
SPOKE WITH MARTIN FROM LAB REGARDING DR HURTADO'S ORDER FOR 24 HOUR URINE CREATININE CLEARANCE.
--- NOTE | 2019-01-24 15:30 | NUR ---
PT SHOWERED, NO OTHER NEEDS AT THIS TIME.
--- NOTE | 2019-01-24 16:35 | NUR ---
BLOOD GLUCOSE CHECKED, 127. NO COVERAGE NEEDED.
--- NOTE | 2019-01-24 17:06 | NUR ---
PT'S IVF BAG CHANGED, NO OTHER NEEDS AT THIS TIME.
--- NOTE | 2019-01-24 19:05 | NUR ---
ENDORSED PT TO RIC KENNEDY FOR CONTINUITY OF CARE. PT STABLE.
--- NOTE | 2019-01-24 19:06 | NUR ---
RECEIVED REPORT FROM DAY SHIFT NURSE PEPITO GALAVIZ-RIC AT BEDSIDE. PT RESTING IN BED, AOX4- PARAGUAYAN SPEAKING, ON ROOM AIR WITH LEFT FA #18G. DISCUSSED PLAN OF CARE AND PT VERBALIZED UNDERSTANDING. NO S/S OF RESPIRATORY DISTRESS OR DISCOMFORT NOTED AT THIS TIME. PT IS AMBULATORY. BED IN LOWEST POSITION, BED BREAKS ON, BOTH SIDE RAILS UP. BEDSIDE TABLE AND CALL LIGHT ARE WITHIN REACH. WILL CONTINUE TO MONITOR.
--- NOTE | 2019-01-24 20:00 | NUR ---
VITAL SIGNS TAKEN AND TOLERATED WELL. BLOOD GLUCOSE 184- WILL ADMINISTER INSULIN COVERAGE. NO S/S OF RESPIRATORY DISTRESS OR DISCOMFORT NOTED AT THIS TIME. WILL CONTINUE TO MONITOR.
[2019-01-24] MEDS: INSULIN LISPRO SLIDING SCALE 100 UNITS/ML VIAL SUBQ PRN (20:05)
--- NOTE | 2019-01-24 20:05 | NUR ---
INSULIN COVERAGE GIVEN AND TOLERATED WELL. NO S/S OF RESPIRATORY DISTRESS OR DISCOMFORT NOTED AT THIS TIME. WILL CONTINUE TO MONITOR.
--- NOTE | 2019-01-24 22:00 | NUR ---
PT SLEEPING IN BED AT THIS TIME. NO S/S OF RESPIRATORY DISTRESS OR DISCOMFORT NOTED AT THIS TIME. WILL CONTINUE TO MONITOR.
[2019-01-25] VITALS: BP 138/87
--- NOTE | 2019-01-25 | NUR ---
VITAL SIGNS TAKEN AND TOLERATED WELL. NO S/S OF RESPIRATORY DISTRESS OR DISCOMFORT NOTED AT THIS TIME. WILL CONTINUE TO MONITOR.
--- NOTE | 2019-01-25 02:00 | NUR ---
PT RESTING IN BED. NO S/S OF RESPIRATORY DISTRESS OR DISCOMFORT NOTED AT THIS TIME. WILL CONTINUE TO MONITOR.
[2019-01-25 04:00] VITALS: BP 159/95
--- NOTE | 2019-01-25 04:00 | NUR ---
VITAL SIGNS TAKEN AND TOLERATED WELL. NO S/S OF RESPIRATORY DISTRESS OR DISCOMFORT NOTED AT THIS TIME. WILL CONTINUE TO MONITOR.
[2019-01-25] MEDS: BLOOD GLUCOSE MONITORING 1 DEV DEV FS SCH ×4 (06:12→21:00)
--- NOTE | 2019-01-25 06:12 | NUR ---
BLOOD GLUCOSE 108- NO INSULIN COVERAGE NEEDED. NO S/S OF RESPIRATORY DISTRESS OR DISCOMFORT NOTED AT THIS TIME. WILL CONTINUE TO MONITOR.
--- NOTE | 2019-01-25 07:24 | NUR ---
ENDORSED PT CARE TO DAY SHIFT NURSE LOUIE FOR CONTINUITY OF CARE.
--- NOTE | 2019-01-25 07:25 | NUR ---
RECEIVED BED SIDE REPORT FROM PILE DRIVING SETTER RN, PT IN STABLE CONDITION, IN NO PAIN, ON RA WITH NO RESP DISTRESS, PT AWAKE AND ORIENTED X4, IVORIAN SPEAKING, PT AWARE ABOUT 24 HOUR CREATNINE CLEARANCE TEST BEING DONE. URINAL AT BED SIDE. SODIUM BICARB IVF ALMOST DONE, WILL AWAIT PHARMACY TO BRING NEW BAG, R FOREARM 18G RUNNING AT 5ML/HR, SKIN INTACT, CALL LIGHT WITHIN REACH, WILL CONTINUE TO MONITOR
[2019-01-25 07:52] LABS: ANION GAP 17.5 (8-16); CARBON DIOXIDE 22.1 mmol/L (21-32); POTASSIUM 3.6 mmol/L (3.5-5.1)
[2019-01-25 07:57] LABS: BASOPHILS % (AUTO) 0.4 % (0.0-2.0); EOSINOPHILS # (AUTO) 0.2 K/uL (0-0.4); EOSINOPHILS % (AUTO) 3.7 % (0.0-4.0); HEMATOCRIT 35.8 % (36-52); HEMOGLOBIN 12.6 g/dL (12.0-18.0); LYMPHOCYTES # (AUTO) 1.7 K/uL (2.0-11.5); MEAN CORPUSCULAR HEMOGLOBIN 31 pg (27-31); MEAN CORPUSCULAR HGB CONC 35 g/dL (33-37); MEAN CORPUSCULAR VOLUME 86.5 fL (80-94); MONOCYTES # (AUTO) 0.5 K/uL (0.8-1.0); MONOCYTES % (AUTO) 7.5 % (1.7-9.3); NEUTROPHILS # (AUTO) 3.9 K/uL (1.8-7.7); NEUTROPHILS % (AUTO) 61.4 % (42.2-75.2); PLATELET COUNT (AUTO) 147 K/uL (140-450); RED BLOOD CELL COUNT(AUTO) 4.13 MIL/uL (4.20-6.10); RED CELL DISTRIBUTION WIDTH 13.6 % (11.6-13.7); WHITE BLOOD COUNT (AUTO) 6.4 K/uL (4.8-10.8)
[2019-01-25] MEDS: NIFEdipine 30 MG TABER PO SCH (07:59)
[2019-01-25 08:00] VITALS: BP 148/95
[2019-01-25 08:02] LABS: MAGNESIUM 1.6 mg/dL (1.8-2.4); PHOSPHORUS 5.5 mg/dL (2.5-4.9)
[2019-01-25 08:19] LABS: CREATININE 6.4 mg/dL (0.7-1.3)
--- NOTE | 2019-01-25 08:41 | NUR ---
CALLED ABOUT CRITICAL VALUE CREATININE 6.4. NO ORDERS WERE GIVEN, WILL CONTINUE TO MONITOR
[2019-01-25] MEDS: SODIUM BICARBONATE 8.4% 50 MEQ in NACL 0.45% 1,000 ML IV SCH ×2 (09:19→22:16)
--- NOTE | 2019-01-25 10:30 | NUR ---
PER , PT WILL NEED TO BE STARTED ON DIALYSIS
[2019-01-25 11:31] VITALS: BP 139/89
--- NOTE | 2019-01-25 11:35 | NUR ---
PT RESTING COMFORTABLY IN BED, ON RA IN NO RESPIRATORY DISTRESS, DENIES PAIN, HAS AMBULATED A COUPLE TIMES THIS MORNING AROUND UNIT, APPEARED IN NO DISTRESS, WILL CONTINUE TO MONITOR
[2019-01-25] MEDS: INSULIN LISPRO SLIDING SCALE 100 UNITS/ML VIAL SUBQ PRN ×2 (11:49→22:16)
[2019-01-25] MEDS ORDERED: MAG SULF 2000 MG/WATER PREMIX 50 ML IV SCH (12:00)
--- NOTE | 2019-01-25 14:34 | NUR ---
PT RESTING ON RA IN NO RESPIRATORY DISTRESS, DENIES PAIN, DROPPED OFF 24 URINE CREATININE COLLECTION TO LAB, WILL AWAIT RESULTS, WILL CONTINUE TO MONITOR
[2019-01-25 16:00] VITALS: BP 143/90
--- NOTE | 2019-01-25 16:40 | NUR ---
LAB CALLED ABOUT ORDERS FOR URINE DRUG SCREEN. DOCUMENTED COLLECTED.
--- NOTE | 2019-01-25 16:43 | NUR ---
PT RESTING COMFORTABLY IN BED, PT STATED HE HAS A RED 5/10, ASKED PT IF HE WANTED TYLENOL, PT AGREED. WILL GIVE TYLENOL.
--- NOTE | 2019-01-25 19:00 | NUR ---
FF UP W/ [facility] THE 24 HR URINE CREATININE. WILL GET RESULT IN AN HOUR
--- NOTE | 2019-01-25 19:18 | NUR ---
GAVE BEDSIDE REPORT TO REFINISH TECHNICIAN RN, PT IN STABLE CONDITION
--- NOTE | 2019-01-25 19:19 | NUR ---
RECEIVED PT FROM AM SHIFT NURSE, PENDING TOTAL PROTEIN, PER PREVIOUS SHIFT FF UP W/ LAB BEC WANTS TO HAVE THIS INCLUDED IN THE 24 URINE COLLECTION ASIDE FROM THE CREATININE CLEARANCE
[2019-01-25 20:00] VITALS: BP 136/85
--- NOTE | 2019-01-25 21:00 | NUR ---
RECEIVED RESULT OF URINE CREATININE 6.0 LOW. STILL PENDING THE TOTAL PROTEIN IN THE URINE
--- NOTE | 2019-01-25 23:58 | NUR ---
ASKED PAT OF LAB TO INCLUDE THE TOTAL PROTEIN IN THE 24 URINE COLLECTION, THIS WAS NOT PROCESSED IN THE AM SHIFT. ORDER IN.
[2019-01-26] VITALS: BP 106/64
--- NOTE | 2019-01-26 02:50 | NUR ---
PT GOING TO THE BATHROOM, ABLE AMBULATE W/ STEADY GAIT. NO S/S'X OF PAIN; SOB NOR BLEEDING
[2019-01-26 04:00] VITALS: BP 106/66
[2019-01-26] MEDS: SODIUM BICARBONATE 8.4% 50 MEQ in NACL 0.45% 1,000 ML IV SCH ×3 (05:55→23:27)
[2019-01-26] MEDS: BLOOD GLUCOSE MONITORING 1 DEV DEV FS SCH ×4 (06:04→20:35)
--- NOTE | 2019-01-26 06:52 | NUR ---
FOLLOWED UP LAB FOR TOTAL PROTEIN SAID THEY WILL CALL BACK AND FF UP AT [place] [facility]
--- NOTE | 2019-01-26 06:55 | NUR ---
LAB CALLED TOTAL PROTEIN IS 179.4MG/DL.
--- NOTE | 2019-01-26 07:20 | NUR ---
ENDORSED TO NEXT SHIFT FOR CONTINUITY OF CARE , PT AWAKE, ALERT ORIENTED X 4. NO COMPLAINTS AT THIS TIME. NPO SINCE MIDNIGHT. FOR PERM CATH PLACEMENT TODAY.
[2019-01-26 07:35] LABS: BASOPHILS % (AUTO) 0.4 % (0.0-2.0); EOSINOPHILS # (AUTO) 0.2 K/uL (0-0.4); EOSINOPHILS % (AUTO) 3.6 % (0.0-4.0); HEMATOCRIT 37.1 % (36-52); HEMOGLOBIN 12.9 g/dL (12.0-18.0); LYMPHOCYTES # (AUTO) 1.7 K/uL (2.0-11.5); LYMPHOCYTES % (AUTO) 26.6 % (20.5-51.1); MEAN CORPUSCULAR HEMOGLOBIN 30 pg (27-31); MEAN CORPUSCULAR HGB CONC 35 g/dL (33-37); MEAN CORPUSCULAR VOLUME 87.4 fL (80-94); MONOCYTES # (AUTO) 0.4 K/uL (0.8-1.0); MONOCYTES % (AUTO) 5.7 % (1.7-9.3); NEUTROPHILS # (AUTO) 4.1 K/uL (1.8-7.7); NEUTROPHILS % (AUTO) 63.7 % (42.2-75.2); PLATELET COUNT (AUTO) 151 K/uL (140-450); RED BLOOD CELL COUNT(AUTO) 4.24 MIL/uL (4.20-6.10); RED CELL DISTRIBUTION WIDTH 13.3 % (11.6-13.7); WHITE BLOOD COUNT (AUTO) 6.5 K/uL (4.8-10.8)
--- NOTE | 2019-01-26 07:46 | NUR ---
RECEIVED BED SIDE REPORT FROM EXECUTIVE ADMINISTRATIVE ASSISTANT RN. PT IN STABLE CONDITION, AWAKE AND ALERT X4, SKIN INTACT, L AC 18G RUNNING SODIUM BICARB 100ML/HR, ON RA IN NO RESPIRATORY DISTRESS. PT TO HAVE TUNNELED PERMACATH HD PLACEMENT TODAY AT 0950. OR CHECKLIST COMPLETED, WILL CONTINUE TO MONITOR
[2019-01-26 07:51] LABS: MAGNESIUM 1.8 mg/dL (1.8-2.4); PHOSPHORUS 5.6 mg/dL (2.5-4.9)
[2019-01-26 07:52] LABS: PROTHROMBIN TIME 9.7 secs (10.8-13.4)
[2019-01-26 08:00] VITALS: BP 167/98
--- NOTE | 2019-01-26 08:30 | NUR ---
WASHED PT WITH CHLOREHEXDINE WIPES. PT TOLERATED WELL.
[2019-01-26] MEDS: NIFEdipine 30 MG TABER PO SCH (08:31)
[2019-01-26 09:08] LABS: ANION GAP 17.6 (8-16); CARBON DIOXIDE 23.2 mmol/L (21-32); POTASSIUM 3.8 mmol/L (3.5-5.1)
[2019-01-26 09:15] LABS: CREATININE 6.8 mg/dL (0.7-1.3)
--- NOTE | 2019-01-26 10:00 | NUR ---
CAME TO SPEAK TO PT BEFORE PROCEDURE TO BE DONE. CURRENTLY PT AT BEDSIDE RESTING, IN STABLE CONDITION, WILL CONTINUE TO MONITOR
--- NOTE | 2019-01-26 10:11 | NUR ---
CALLED [facility] SPOKE WITH RAMANDEEP THAT PATIENT NEEDS TO SET UP OUT PATIENT DIALYSIS, WAITING FOR LABOR[facility] WHERE THEY WANT THE DIALYSIS AND D/C PLANNING WILL F/U.
--- NOTE | 2019-01-26 10:17 | NUR ---
SPOKE TO GARIMA HAINES AND TOLD HER THAT [facility]PHRO WANTS PT TO GO TO [facility]
--- NOTE | 2019-01-26 10:30 | NUR ---
AUTOMOTIVE PRODUCT ENGINEERRIC VILLALTA PICKED UP PT FOR TUNNELED HD PERMACATH PLACEMENT. PT IN STABLE CONDITION.
--- NOTE | 2019-01-26 10:57 | NUR ---
CALLED THE ON LICENSE OF [facility] [phone] SPOKE WITH AMADOR, SHE STATED TO CONTACT THE DIALYSIS CENTER AND ONCE THEY HAVE A CHAIR THEY WILL CONTACT THE INSURANCE FOR AUTH # . CALLED [facility] [phone] SPOKE WITH ISMA AND NOTIFIED HER PT NEEDS A DIALYSIS DAY OUT PATIENT PER ISMA TO FAX FOR REVIEW AND WILL CALL BACK. FAXED ALL THE PAPER WORK TO [phone]
[2019-01-26] MEDS ORDERED: BUPIVACAINE-MPF/EPI 0.25% 30 ML VIAL INJ ONE (11:02)
[2019-01-26] MEDS ORDERED: LIDOCAINE/EPI MPF 1%1:200000 30 ML VIAL INJ ONE (11:02)
[2019-01-26] MEDS ORDERED: fentaNYL 0.05 MG/ML VIAL ONE (11:11)
[2019-01-26] MEDS ORDERED: ONDANSETRON 4 MG/2 ML VIAL IVP PRN (11:35)
[2019-01-26] MEDS ORDERED: HYDROmorphone 1 MG/ML AMP IVP PRN (11:35)
[2019-01-26] MEDS ORDERED: BLOOD GLUCOSE MONITORING 1 DEV DEV FS SCH (12:00)
[2019-01-26 12:50] VITALS: BP 145/88
--- NOTE | 2019-01-26 12:50 | NUR ---
RECEIVED BED SIDE REPORT FROM WELDER FITTER HELPER. PT CAME IN [facility] ON RA IN NO RESPIRATORY DISTRESS. PT APPEARS DROWSY BUT AROUSABLE. SURGICAL SITE LOOKS CLEAN DRY AND INTACT. PT HAS 2 SURGICAL SITES: ONE ON HIS CHEST WITH TRANSPARENT DRESSING, NO BLEEDING NOTED, DRESSING INTACT. 2ND SURGICAL SITE RIGHT IJ DRESSING WITH NO BLEEDING NOTED, DRY CLEAN AND INTACT. PT COMPLAINS OF SURGICAL SITE PAIN 5/10, WILL GIVE MORPHINE 2MG PER MD ORDER. PT STATES HE FEELS A LITTLE BIT NAUSEOUS, OFFERED PT TO GIVE ZOFRAN, PT REFUSED. PT'S SIGNIFICANT OTHER AT BEDSIDE. VS STABLE. LAST SUGAR FROM WELDER FITTER HELPER WAS 125. CALL LIGHT WITHIN REACH, WILL CONTINUE TO MONITOR
--- NOTE | 2019-01-26 13:05 | NUR ---
CALLED HD [facility] TO NOTIFY ABOUT PT NEEDING HD TODAY AND TOMORROW
[2019-01-26] MEDS: MORPHINE SULFATE 2 MG/ML SYR IVP PRN ×2 (13:16→18:23)
--- NOTE | 2019-01-26 15:07 | NUR ---
CALLED [facility] SPOKE WITH ALICIA, RECEIVED ALL THE REQUEST BUT THE BED COORDINATOR IS NOT IN TODAY , WILL CALL BACK TOMORROW
[2019-01-26 16:00] VITALS: BP 159/98
--- NOTE | 2019-01-26 19:20 | NUR ---
GAVE BEDSIDE REPORT TO MILLWRIGHT HELPER RN. PT IN STABLE CONDITION
[2019-01-26 20:00] VITALS: BP 127/81
--- NOTE | 2019-01-26 20:15 | NUR ---
PT'S H.D CONSENT OBTAINED BY DIALYSIS NURSE.
[2019-01-26] MEDS: INSULIN LISPRO SLIDING SCALE 100 UNITS/ML VIAL SUBQ PRN (20:42)
--- NOTE | 2019-01-26 21:49 | NUR ---
GOT AN ORDER FORM Federico COLE FOR HEPARIN 1000 MG/ ( 2 VIALS OF 5,000 UNIT/ML EACH) FOR H.D. WILL CARRY OUT Addendum: 01/26/19 at 2228 by Jennifer Del Rosario RN AMEND 10,000 MG TOTAL( 5,000 MG/UNIT EACH)
--- NOTE | 2019-01-26 22:25 | NUR ---
STARTED AT 2024; ENDED AT 2224; FINISHED IN 2 HR, 1,000 ML TAKEN OUT.
[2019-01-27] VITALS: BP 138/85
[2019-01-27 04:00] VITALS: BP 153/101
[2019-01-27 06:09] VITALS: BP 153/90
--- NOTE | 2019-01-27 06:10 | NUR ---
RECHEKED BP= 150/90 MMHG; HR 77, FOR HD, 2ND DAY TODAY
[2019-01-27 06:14] LABS: BASOPHILS % (AUTO) 0.3 % (0.0-2.0); EOSINOPHILS # (AUTO) 0.2 K/uL (0-0.4); EOSINOPHILS % (AUTO) 1.9 % (0.0-4.0); HEMATOCRIT 38.2 % (36-52); HEMOGLOBIN 13.6 g/dL (12.0-18.0); LYMPHOCYTES # (AUTO) 2.9 K/uL (2.0-11.5); LYMPHOCYTES % (AUTO) 28.3 % (20.5-51.1); MEAN CORPUSCULAR HEMOGLOBIN 31 pg (27-31); MEAN CORPUSCULAR HGB CONC 36 g/dL (33-37); MEAN CORPUSCULAR VOLUME 86.7 fL (80-94); MONOCYTES # (AUTO) 0.7 K/uL (0.8-1.0); MONOCYTES % (AUTO) 6.6 % (1.7-9.3); NEUTROPHILS # (AUTO) 6.5 K/uL (1.8-7.7); NEUTROPHILS % (AUTO) 62.9 % (42.2-75.2); PLATELET COUNT (AUTO) 165 K/uL (140-450); RED CELL DISTRIBUTION WIDTH 13.2 % (11.6-13.7); WHITE BLOOD COUNT (AUTO) 10.4 K/uL (4.8-10.8)
[2019-01-27] MEDS: BLOOD GLUCOSE MONITORING 1 DEV DEV FS SCH ×3 (06:31→16:35)
[2019-01-27 06:37] LABS: ANION GAP 14.7 (8-16); CARBON DIOXIDE 28.1 mmol/L (21-32); POTASSIUM 3.8 mmol/L (3.5-5.1)
[2019-01-27 06:48] LABS: MAGNESIUM 1.6 mg/dL (1.8-2.4); PHOSPHORUS 5.1 mg/dL (2.5-4.9)
--- NOTE | 2019-01-27 07:15 | NUR ---
SBAR REPORT RECEIVED AT PT BEDSIDE. PATIENT RESTING IN BED. DENIES DISCOMFORT. ON ROOM AIR. ALERT AND ORIENTED, FOLLOWS COMMANDS. CALL LIGHT WITHIN REACH. NO ACUTE DISTRESS NOTED.
[2019-01-27 07:44] LABS: CREATININE 5.4 mg/dL (0.7-1.3)
[2019-01-27 08:00] VITALS: BP 129/97
[2019-01-27] MEDS: NIFEdipine 30 MG TABER PO SCH (09:44)
--- NOTE | 2019-01-27 10:15 | NUR ---
PATIENT AMBULATORY. NO ACUTE DISTRESS NOTED. LINES MONITORED, C/D/I. DENIES DISCOMFORT.
--- NOTE | 2019-01-27 10:24 | NUR ---
CALLED [facility] AND SPOKE TO DEA [phone], OUTPATIENT DIALYSIS SCHEDULE OBTAINED. SCHEDULE IS [id number] AT 1315.
[2019-01-27] MEDS: SODIUM BICARBONATE 8.4% 50 MEQ in NACL 0.45% 1,000 ML IV SCH (10:52)
[2019-01-27 12:00] VITALS: BP 139/85
--- NOTE | 2019-01-27 12:30 | NUR ---
PATIENT AMBULATORY WITH NO ASSIST. LINENS CHANGED. UPDATED PATIENT ON CURRENT PLAN OF CARE, IN AGREEMENT. NO ACUTE DISTRESS NOTED.
--- NOTE | 2019-01-27 13:46 | NUR ---
CALLED AND SPOKE TO JOSELIN SAMUEL RN REGARDING PATIENT OUTPATIENT DIALYSIS SCHEDULE [id number] [address] [facility].
--- NOTE | 2019-01-27 14:57 | NUR ---
PATIENT STARTED ON HEMODIALYSIS AT BEDSIDE. PATIENT'S SPOUSE AT BEDSIDE. ALL NEEDS MET, NO ACUTE DISTRESS NOTED.
[2019-01-27 16:00] VITALS: BP 143/89
--- NOTE | 2019-01-27 16:00 | NUR ---
CONTACTED [facility] REGARDING PT'S NEPHRO CLEARANCE FOR DISCHARGE. AWAITING FOR DR. JULIA PARRA'S CALL BACK.
--- NOTE | 2019-01-27 16:08 | NUR ---
01/27/19 RD FOLLOW UP COMPLETED PLEASE REFER TO NUTRITION ASSESSMENT UNDER CARE ACTIVITY FOR ESTIMATED NUTRITIONAL NEEDS. 1. CONTINUE RENAL DIET TOLERATED 2. RD PROVIDED NUTRITION EDUCATION ON RENAL DIET. PT ACCEPTED ED. 3. RD TO FOLLOW-UP 5-7 DAYS, LOW RISK ALFREDITO NAVA, LYNNE
--- NOTE | 2019-01-27 17:53 | NUR ---
PATIENT COMPLETED DIALYSIS AT BEDSIDE. 3L REMOVED. PATIENT RESTING IN BED, NO ACUTE DISTRESS NOTED. FAMILY AT BEDSIDE. DIVIDEND DEPOSIT ENTRY CLERK SPOKE WITH BAHMAN DIXON TO DISCHARGE HOME TODAY. FAMILY UPDATED WITH CURRENT PLAN OF CARE, IN AGREEMENT.
--- NOTE | 2019-01-27 19:00 | NUR ---
PATIENT DISCHARGE INSTRUCTIONS GIVEN WITH FOLLOW UP TEACHING. MED REC AND SCHEDULE GIVEN WITH FOLLOW UP APPOINTMENTS. PATIENT'S FAMILY AT BEDSIDE, VERBALIZED UNDERSTANDING. IV REMOVED, CANULA INTACT. CARE INSTRUCTIONS OF CENTRAL LINE GIVEN. PATIENT WHEELED TO FRONT LOBBY, AMBULATORY WITH STEADY GAIT. SPOUSE TO TAKE PATIENT HOME.
== END 2019-01-27 19:00 | disposition home or self-care (01) | DRG 469 ==
LOC: MED 14:30 → MMU 18:42
PROVIDERS: ADMIT Internal Medicine Pulmonary Disease; ATTEND Internal Medicine Pulmonary Disease
PROC: 0JH63XZ Insertion of Tunneled Vascular Access Device into Chest Subcutaneous Tissue and Fascia, Percutaneous Approach (ICD-10-PCS; 2019-01-26)
PROC: 02HV33Z Insertion of Infusion Device into Superior Vena Cava, Percutaneous Approach (ICD-10-PCS; 2019-01-26)
PROC: B5181ZA Fluoroscopy of Superior Vena Cava using Low Osmolar Contrast, Guidance (ICD-10-PCS; 2019-01-26)
PROC: B548ZZA Ultrasonography of Superior Vena Cava, Guidance (ICD-10-PCS; 2019-01-26)
PROC: 5A1D70Z Performance of Urinary Filtration, Intermittent, Less than 6 Hours Per Day (ICD-10-PCS; principal; 2019-01-26 10:20)
PROC: 5A1D70Z Performance of Urinary Filtration, Intermittent, Less than 6 Hours Per Day (ICD-10-PCS; 2019-01-27)
DX: N17.9 Acute kidney failure, unspecified (principal); E11.22 Type 2 diabetes mellitus with diabetic chronic kidney disease; I12.0 Hypertensive chronic kidney disease with stage 5 chronic kidney disease or end stage renal disease; E11.65 Type 2 diabetes mellitus with hyperglycemia; E44.1 Mild protein-calorie malnutrition; K56.7 Ileus, unspecified; E83.42 Hypomagnesemia; K52.9 Noninfective gastroenteritis and colitis, unspecified; N18.6 End stage renal disease; E83.39 Other disorders of phosphorus metabolism; E86.0 Dehydration; E83.51 Hypocalcemia; Z68.33 Body mass index [BMI] 33.0-33.9, adult; Z79.4 Long term (current) use of insulin; Z79.899 Other long term (current) drug therapy; Z90.49 Acquired absence of other specified parts of digestive tract
CPT/HCPCS: 36415; 36600; 71045; 76700; 80048; 80053; 81001; 82009; 82150; 82570; 82803; 82948; 83036; 83605; 83690; 83735; 84100; 84156; 84300; 84439; 84443; 84479; 84484; 84550; 85025; 85610; 85730; 86160; 86706; 86803; 86886; 86900; 86901; 87081; 87205; 87340; 90935; 93005; 96361; 96374; 99285; C1750; G0482; J1644; J1815; J2001; J2270; J2405; J3010; J3475; J3490; J7030; Q0092

== ENCOUNTER 2019-04-06 15:12 | Emergency (ER) | payer OTHER ==
[~2019-04-06] VITALS: Ht 177.8 cm; Wt 104.3 kg
[2019-04-06 15:27] VITALS: BP 129/90
[2019-04-06] MEDS ORDERED: ONDANSETRON 4 MG/2 ML VIAL IVP ONE (15:35)
[2019-04-06] MEDS ORDERED: MORPHINE SULFATE 4 MG/ML SYR IVP ONE ×2 (15:35→17:00)
--- NOTE | 2019-04-06 15:40 | NUR ---
RENAL BIOPSY THIS MORNING LEFT ---SUDDEN ONSET OF GENERALIZED PAIN CONCENTRATED MORESO LEFT FLANK---TENDERNESS DRESSING FROM BIOPSY REMAINS DRY CLEAN N INTACT. DIZZINESS AND NAUSEA
[2019-04-06 15:58] LABS: BASOPHILS % (AUTO) 0.3 % (0.0-2.0); EOSINOPHILS # (AUTO) 0.1 K/uL (0-0.4); EOSINOPHILS % (AUTO) 1.2 % (0.0-4.0); HEMATOCRIT 35.2 % (36-52); HEMOGLOBIN 12.5 g/dL (12.0-18.0); LYMPHOCYTES # (AUTO) 1.6 K/uL (2.0-11.5); LYMPHOCYTES % (AUTO) 15.4 % (20.5-51.1); MEAN CORPUSCULAR HEMOGLOBIN 32 pg (27-31); MEAN CORPUSCULAR HGB CONC 36 g/dL (33-37); MEAN CORPUSCULAR VOLUME 90.5 fL (80-94); MONOCYTES # (AUTO) 0.6 K/uL (0.8-1.0); MONOCYTES % (AUTO) 5.6 % (1.7-9.3); NEUTROPHILS # (AUTO) 8.2 K/uL (1.8-7.7); NEUTROPHILS % (AUTO) 77.5 % (42.2-75.2); PLATELET COUNT (AUTO) 168 K/uL (140-450); RED BLOOD CELL COUNT(AUTO) 3.89 MIL/uL (4.20-6.10); RED CELL DISTRIBUTION WIDTH 13.8 % (11.6-13.7); WHITE BLOOD COUNT (AUTO) 10.6 K/uL (4.8-10.8)
[2019-04-06] MEDS ORDERED: ORE25 PO (15:59)
[2019-04-06] MEDS ORDERED: LOSA50TA66 PO (15:59)
--- NOTE | 2019-04-06 16:08 | NUR ---
PT TO CT VIA [facility]
--- NOTE | 2019-04-06 16:11 | NUR ---
MEDICATED ORDERED. WILL CONTINUE TO MONITOR FOR PAIN CONTROL.
--- NOTE | 2019-04-06 16:19 | NUR ---
RETURNED FROM CT VIA [facility]
[2019-04-06 16:20] LABS: ALBUMIN 3.5 g/dL (3.4-5.0); CARBON DIOXIDE 28.5 mmol/L (21-32); POTASSIUM 4.5 mmol/L (3.5-5.1); TOTAL BILIRUBIN 0.6 mg/dL (0.0-1.0)
[2019-04-06 16:26] LABS: CREATININE 8.4 mg/dL (0.7-1.3)
[2019-04-06 16:52] LABS: PROTHROMBIN TIME 10.1 secs (10.8-13.4)
[2019-04-06 17:41] LABS: APPEARANCE,URINE CLOUDY (CLEAR); BILIRUBIN,URINE NEGATIVE (NEGATIVE); BLOOD, URINE 3+ (NEGATIVE); COLOR,URINE RED (YELLOW); LEUKOCYTE ESTERASE ,URINE 3+ (NEGATIVE); NITRITE, URINE POSITIVE (NEGATIVE); PH,URINE 7.5 (5.0-9.0); UGLUCOSE 1+ (NEGATIVE)
[2019-04-06 18:01] LABS: RBC,URINE TOO NUMEROUS TO COUN /HPF (0-5); WBC,URINE TOO MANY TO COUNT /HPF (0-5)
--- NOTE | 2019-04-06 19:30 | NUR ---
REPORT RECIEVED FROM MELISSA LARIOS.
--- NOTE | 2019-04-06 19:30 | NUR ---
PT IN BED RESTING WITH EYES OPEN. VSS. FAMILY AT BEDSIDE. 10/26 PAIN AND TOLLERABLE. CONTINUE TO MONITOR.
--- NOTE | 2019-04-06 20:00 | NUR ---
PT IN BED RESTING WITH EYES CLOSED. FAMILY WHENT HOME. NO DISTRESS OF ANYKIND NOTED. CONTINUE TO MONITOR.
--- NOTE | 2019-04-06 22:00 | NUR ---
PT IN BED RESTING WITH EYES CLOSED. VSS. CONTINUE TO MONITOR.
--- NOTE | 2019-04-06 22:40 | NUR ---
PT WAKE WITH 2/10 PAIN. PT STATES TOLLERABLE. ER MD AWARE. CONTINUE TO MONITOR.
[2019-04-06 23:54] LABS: BASOPHILS % (AUTO) 0.3 % (0.0-2.0); EOSINOPHILS # (AUTO) 0.2 K/uL (0-0.4); EOSINOPHILS % (AUTO) 1.8 % (0.0-4.0); HEMATOCRIT 33.1 % (36-52); HEMOGLOBIN 11.7 g/dL (12.0-18.0); LYMPHOCYTES # (AUTO) 2.5 K/uL (2.0-11.5); MEAN CORPUSCULAR HEMOGLOBIN 32 pg (27-31); MEAN CORPUSCULAR HGB CONC 35 g/dL (33-37); MEAN CORPUSCULAR VOLUME 90.2 fL (80-94); MONOCYTES # (AUTO) 0.6 K/uL (0.8-1.0); MONOCYTES % (AUTO) 6.5 % (1.7-9.3); NEUTROPHILS # (AUTO) 6.3 K/uL (1.8-7.7); NEUTROPHILS % (AUTO) 65.4 % (42.2-75.2); PLATELET COUNT (AUTO) 159 K/uL (140-450); RED BLOOD CELL COUNT(AUTO) 3.67 MIL/uL (4.20-6.10); RED CELL DISTRIBUTION WIDTH 13.8 % (11.6-13.7); WHITE BLOOD COUNT (AUTO) 9.6 K/uL (4.8-10.8)
--- NOTE | 2019-04-07 | NUR ---
PT STATES 0/10 PAIN. VSS. CONTINUE TO MONITOR.
[2019-04-07 00:12] LABS: PROTHROMBIN TIME 10.3 secs (10.8-13.4)
--- NOTE | 2019-04-07 00:25 | NUR ---
DR MOON AT BEDSIDE EXPLAING DC INSTRUCTIONS.
[2019-04-07 00:34] VITALS: BP 112/66
--- NOTE | 2019-04-07 00:34 | NUR ---
DISCHARGE PAPERS GIVEN TO PT. PT INSTRUCTED TO F/U WITH UROLOGY AT [facility] ON THIS DAY. PT VERBALLIZED UNDERSTANDING OF DC INSTRUCTIONS. ALL QUESTIONS ANSWERED.
== END 2019-04-07 00:34 | disposition home or self-care (01) ==
LOC: MED 15:12
DX: S37.012A Minor contusion of left kidney, initial encounter (principal); N19 Unspecified kidney failure; I10 Essential (primary) hypertension; E11.9 Type 2 diabetes mellitus without complications; Z95.9 Presence of cardiac and vascular implant and graft, unspecified; Z99.2 Dependence on renal dialysis; Z79.4 Long term (current) use of insulin; Z79.899 Other long term (current) drug therapy; Y84.8 Other medical procedures as the cause of abnormal reaction of the patient, or of later complication, without mention of misadventure at the time of the procedure; Y93.89 Activity, other specified; Y92.89 Other specified places as the place of occurrence of the external cause; Y99.8 Other external cause status
CPT/HCPCS: 36415; 71045; 74150; 74176; 80053; 81001; 82948; 84484; 85025; 85610; 85730; 86886; 86900; 86901; 87086; 93005; 96374; 96375; 96376; 99284; J2270; J2405; Q0092

== ENCOUNTER 2019-04-08 00:30 | Emergency (ER) | payer OTHER ==
[~2019-04-08] VITALS: Ht 167.6 cm; Wt 79.4 kg
[~2019-04-08 00:30] MED LIST changes: +LOSA50TA66 PO; +ORE25 PO
[2019-04-08 00:34] VITALS: BP 135/78
--- NOTE | 2019-04-08 00:40 | NUR ---
PT TAKEN TO BED 9
--- NOTE | 2019-04-08 00:43 | NUR ---
PT CAME TO ER C/O OF NOT BEING ABLE TO URINATE. PT WAS SEEN IN ER YESTERDAY FOR SAME S/S. PT WAS REFERRED TO [facility] FOR UROLOGY. PT HAS ABDOMINAL PAIN AND STRONG URGE TO PEE BUT IS UNABLE TO. PT HAD RECENT KIDNEY BIOPSY. ERMD AWARE OF PT STATUS.
--- NOTE | 2019-04-08 00:44 | NUR ---
Dr. Alfredo examining patient.
--- NOTE | 2019-04-08 01:10 | NUR ---
INSERTED SEVERINO 16 DANISH. PT TOLERATED PROCEDURE WELL.
[2019-04-08 01:15] LABS: BASOPHILS % (AUTO) 0.2 % (0.0-2.0); EOSINOPHILS # (AUTO) 0.2 K/uL (0-0.4); EOSINOPHILS % (AUTO) 2.4 % (0.0-4.0); HEMATOCRIT 30.3 % (36-52); HEMOGLOBIN 11.2 g/dL (12.0-18.0); MEAN CORPUSCULAR HEMOGLOBIN 33 pg (27-31); MEAN CORPUSCULAR HGB CONC 37 g/dL (33-37); MEAN CORPUSCULAR VOLUME 89.7 fL (80-94); MONOCYTES # (AUTO) 0.6 K/uL (0.8-1.0); NEUTROPHILS # (AUTO) 6.1 K/uL (1.8-7.7); NEUTROPHILS % (AUTO) 68.4 % (42.2-75.2); PLATELET COUNT (AUTO) 146 K/uL (140-450); RED BLOOD CELL COUNT(AUTO) 3.38 MIL/uL (4.20-6.10); RED CELL DISTRIBUTION WIDTH 13.6 % (11.6-13.7); WHITE BLOOD COUNT (AUTO) 8.9 K/uL (4.8-10.8)
--- NOTE | 2019-04-08 01:16 | NUR ---
URINE OUTPUT 500CC RED/BLOOD CONSISTENCY
[2019-04-08 01:31] LABS: APPEARANCE,URINE BLOODY (CLEAR); COLOR,URINE BLOODY (YELLOW)
[2019-04-08 01:32] LABS: BILIRUBIN,URINE NEGATIVE (NEGATIVE); BLOOD, URINE 4+ (NEGATIVE); LEUKOCYTE ESTERASE ,URINE NEGATIVE (NEGATIVE); NITRITE, URINE NEGATIVE (NEGATIVE); UGLUCOSE 1+ (NEGATIVE)
[2019-04-08 01:34] LABS: RBC,URINE TOO NUMEROUS TO COUN /HPF (0-5); WBC,URINE 0-5 /HPF (0-5)
[2019-04-08 01:41] LABS: ALBUMIN 3.4 g/dL (3.4-5.0); ANION GAP 19.1 (8-16); CARBON DIOXIDE 23.8 mmol/L (21-32); POTASSIUM 4.9 mmol/L (3.5-5.1); TOTAL BILIRUBIN 0.5 mg/dL (0.0-1.0)
[2019-04-08 01:43] LABS: CREATININE 10.8 mg/dL (0.7-1.3)
--- NOTE | 2019-04-08 01:43 | NUR ---
Note princess in EDM - 04/08/19 at 0143 by ASHLEY [facility] BUN 75 AND CREATININE 10.8. ERMD NOTIFIED.
--- NOTE | 2019-04-08 01:44 | NUR ---
CRITICAL LABS BUN 75 AND CREATININE 10.8. ERMD NOTIFIED.
--- NOTE | 2019-04-08 01:46 | NUR ---
PT TAKEN TO CT
[2019-04-08 03:00] VITALS: BP 121/75
--- NOTE | 2019-04-08 03:03 | NUR ---
Patient discharged with v/s stable. Written and verbal after care instructions given and explained. Patient verbalized understanding. Ambulatory with steady gait. All questions addressed prior to discharge. Advised to follow up with DR. WEISS and go to Dialysis tomorrow.
== END 2019-04-08 03:03 | disposition home or self-care (01) ==
LOC: MED 00:30
DX: S37.012A Minor contusion of left kidney, initial encounter (principal); E11.9 Type 2 diabetes mellitus without complications; K21.9 Gastro-esophageal reflux disease without esophagitis; I10 Essential (primary) hypertension; Z79.4 Long term (current) use of insulin; Z99.2 Dependence on renal dialysis; Z79.899 Other long term (current) drug therapy; Y84.8 Other medical procedures as the cause of abnormal reaction of the patient, or of later complication, without mention of misadventure at the time of the procedure; Y93.89 Activity, other specified; Y92.89 Other specified places as the place of occurrence of the external cause; Y99.8 Other external cause status
CPT/HCPCS: 36415; 80053; 81001; 85025; 99284

== ENCOUNTER 2020-01-24 10:39 | Emergency (ER) | payer OTHER ==
[~2020-01-24] VITALS: Ht 180.3 cm; Wt 104.3 kg
[~2020-01-24 10:39] MED LIST changes: -HYDR100T79 PO
--- NOTE | 2020-01-24 10:41 | NUR ---
PT AMBULATED TO ER BED 4
[2020-01-24 10:44] VITALS: BP 174/98
--- NOTE | 2020-01-24 10:45 | NUR ---
INSTRUCTED PT TO PROVIDE URINE SAMPLE, PT VERBALIZED COMPLETE UNDERSTANDING.
--- NOTE | 2020-01-24 10:47 | NUR ---
AMB TO BATHROOM TO PROVIDE URINE SAMPLE
--- NOTE | 2020-01-24 10:49 | NUR ---
DR. RAHMAN EVALUATING PT AT BEDSIDE
--- NOTE | 2020-01-24 10:54 | NUR ---
C/O RIGHT SIDED FLANK PAIN RADIATING RLE X LAST NIGHT. PT DENIES INJURY---AMBULATORY WITH SLOW GUARDED GAIT. HD SHUNT ON LT UA. HX---ESRD (DIMITRY, VINCE, SAT) , HTN, DM, DEPRESSION RX---NORCO, NIFEDIPINE, ZOLOFT, CALCIUM Addendum: 01/24/20 at 1102 by BRITNEY DENIES DYSURIA
[2020-01-24] MEDS ORDERED: KETOROLAC 30 MG/ML VIAL IM ONE (10:55)
[2020-01-24] MEDS ORDERED: cloNIDine 0.1 MG TAB PO ONE (10:55)
--- NOTE | 2020-01-24 11:46 | NUR ---
pt back from xray via w/c
--- NOTE | 2020-01-24 11:55 | NUR ---
PT STATES DECREASE OF PAIN TO 5/10 AT THIS TIME.
--- NOTE | 2020-01-24 12:43 | NUR ---
TO XRAY VIA W/C
--- NOTE | 2020-01-24 13:05 | NUR ---
Pt returned from x-ray and placed back into bed 4.
[2020-01-24 13:40] VITALS: BP 131/73
--- NOTE | 2020-01-24 13:40 | NUR ---
Patient discharged with v/s stable. Written and verbal after care instructions given and explained in italian by myself. Patient alert, oriented and verbalized understanding of instructions. Patient calling family member for a ride. All questions addressed prior to discharge. ID band removed. Patient advised to follow up with PMD. Rx of Ibuprofen given. Copy of X-RAY reports were given to patient. Patient educated on indication of medication including possible reaction and side effects. Opportunity to ask questions provided and answered.
== END 2020-01-24 13:40 | disposition home or self-care (01) ==
LOC: MED 10:39
DX: M54.6 Pain in thoracic spine (principal); E11.9 Type 2 diabetes mellitus without complications; I10 Essential (primary) hypertension; K21.9 Gastro-esophageal reflux disease without esophagitis; N28.9 Disorder of kidney and ureter, unspecified; Z79.899 Other long term (current) drug therapy
CPT/HCPCS: 72072; 72110; 96372; 99284; J1885